=== PATIENT | female | born 1980 | race African-American/Black ===

== ENCOUNTER 2019-07-15 06:54 | Inpatient (IN) | payer MEDICAID ==
[~2019-07-15] VITALS: Ht 172.7 cm; Wt 90.0 kg
[2019-07-15] VITALS (15 sets, daily range): BP systolic 103–147; BP diastolic 51–81; PULSE 78–90; TEMP 97.1–98.2
--- NOTE | 2019-07-15 06:50 | NUR ---
PATIENT HERE WITH EMS. REPORT RECIEVED FROM EMS. PATIENT ON EFM, VITAL SIGNS OBTAINED. SVE BY GIOVANNI WOMACK. PATIENT ON EFM, VITALS OBTAINED. PATIENT SCREAMING THROUGH CONTRACTIONS. EMOTIONAL SUPPORT PROVIDED. IV STARTED. CONSENTS SIGNED, ADMISSION COMPLETE
[~2019-07-15 06:54] MED LIST: AMOXICILLIN 50500 MG PO; NO HOME MEDICATIONS; PRENATAL1 TA1 PO; ZANTAC150 MG PO
[2019-07-15] MEDS ORDERED: PRENATAL PO (07:15)
[2019-07-15 07:28] LABS: BASO # 0.1 (0.0-0.2); BASO % 0.6 % (0.0-2.0); EOS # 0.1 (0.0-0.7); EOS % 0.9 % (0-4.0); GRAN # 10.1 (1.4-6.5); GRAN % 69.6 % (42.2-75.2); HEMATOCRIT 42.8 % (37.0-47.0); HEMOGLOBIN 14.6 g/dl (12.5-16.0); LYMPH # 3.1 (1.2-3.4); LYMPH % 21.7 % (20.0-51.0); MEAN CELL VOLUME 90 fl (80.0-100.0); MEAN CORPUSCULAR HEMOGLOBIN 31 pg (27.0-31.0); MEAN CORPUSCULAR HGB CONC 34 g/dl (33.0-37.0); MONO # 0.9 (0.1-0.6); MONO % 6.5 % (1.7-9.3); PLATELET COUNT 226 K/mm3 (130-400); RED BLOOD COUNT 4.74 M/mm3 (4.10-5.30); REDCELL DISTRIBUTION WIDTH-CV 14.9 % (11.5-14.5)
--- NOTE | 2019-07-15 08:16 | NUR ---
BY DR SOLITARIO. TO CARE OF FERNANDEZ OSORIO RN. PLACENTA EXPRESSED AT 0820. PITOCIN AT 333 MLS/ HOUR. 1ST DEGREE PERINEAL LACERATION REPAIRED BY DR SOLITARIO. EBL 300. ICE PACK TO PERINEUM. RECOVERY STARTED AT 0830.
[2019-07-15] MEDS ORDERED: IBU600 MG PO (08:53)
[2019-07-15 13:37] LABS: TRICYCLIC ANTIDEPRESS URINE NEGATIVE
--- NOTE | 2019-07-15 14:46 | NUR ---
[employer] small responded to a consult for the patient due to identified risk of presence of illegal drugs in infant. The patient had a positive UDS for THC on 07/15/19. The patient's baby was tranferred to [facility] due to delivery at 34 weeks. [employer] small contacted the baby's nurse at [facility] and informed her of the CPS report that was filed. [employer] small met with the patient. The patient needs a carseat. [employer]DEBA[employer] small collaborated with [facility] to get a carseat for the patient. The patient reported she was not using illegal substances but did with her last in 2009 due to being in a bad relationship. She reports she has a good support system now. The patient has a past history of depression and states she currently sees Dr. Everett for care. [facility] # [id number] [employer] small collaborated the above information with the patient's nurse.
--- NOTE | 2019-07-15 16:05 | NUR ---
[employer] student contacted the NICU Engineering Project Manager, Shirley Queen. SENIOR RESERVOIR ENGINEER student provided the CPS number. Ms. Queen reports she will meet with the patient once she visits baby. There are no additional needs.
== END 2019-07-15 17:07 | disposition home or self-care (01) | DRG 807 ==
LOC: LDRO 06:54 → LDR 07:12 → OB 07:12
PROVIDERS: ADMIT Obstetrics & Gynecology
PROC: 10E0XZZ Delivery of Products of Conception, External Approach (ICD-10-PCS; principal; 2019-07-15)
PROC: 0HQ9XZZ Repair Perineum Skin, External Approach (ICD-10-PCS; 2019-07-15)
DX: O42.913 Preterm premature rupture of membranes, unspecified as to length of time between rupture and onset of labor, third trimester (principal); Z37.0 Single live birth; O77.0 Labor and delivery complicated by meconium in amniotic fluid; O76 Abnormality in fetal heart rate and rhythm complicating labor and delivery; O70.0 First degree perineal laceration during delivery; Z3A.34 34 weeks gestation of pregnancy
CPT/HCPCS: J2540; J2590; J7120